=== PATIENT | female | born 1970 | race Caucasian/White ===

== ENCOUNTER 2018-01-03 09:42 | Emergency (ER) | payer MEDICAID ==
[~2018-01-03] VITALS: Ht 162.6 cm; Wt 78.5 kg
[2018-01-03 09:47] VITALS: Ht 162.6 cm; Wt 78.5 kg
[2018-01-03 11:25] LABS: CALCIUM 9.2 mg/dL (8.5-10.1); CARBON DIOXIDE 27.9 mmol/L (21-32); CHLORIDE SERUM 105 mmol/L (98-107); CREATININE SERUM 0.7 mg/dL (0.6-1.0); GFR1 > 60 mL/min; GLUCOSE SERUM 99 mg/dL (74-106); POTASSIUM SERUM 3.7 mmol/L (3.5-5.1); SODIUM SERUM 141 mmol/L (136-145)
[2018-01-03 11:26] LABS: BASOPHIL % 0.6 % (0-2); PLATELET COUNT 309 x10^3mcL (130-400)
[2018-01-03 11:30] LABS: ALBUMIN 3.5 g/dL (3.4-5.0); ALKALINE PHOSPHATASE 122 U/L (46-116); ALT/SGPT 23 U/L (14-59); AST/SGOT 17 U/L (15-37); BILIRUBIN TOTAL 0.3 mg/dL (0.20-1.00); TOTAL PROTEIN, SERUM 7.3 g/dL (6.4-8.2)
[2018-01-03 11:34] LABS: RED CELL DISTRIBUTION WIDTH 17.2 % (11.5-14.5)
[2018-01-03 13:05] VITALS: BP 142/74
== END 2018-01-03 13:05 | disposition home or self-care (01) ==
LOC: ED 09:42
PROVIDERS: Emergency Medicine
DX: N93.8 Other specified abnormal uterine and vaginal bleeding (principal); Z97.5 Presence of (intrauterine) contraceptive device
CPT/HCPCS: J1885; J2405

== ENCOUNTER 2019-10-15 20:03 | Emergency (ER) | payer OTHER ==
[~2019-10-15] VITALS: Ht 162.6 cm; Wt 84.8 kg
[2019-10-15 20:30] VITALS: Ht 162.6 cm; Wt 84.8 kg
[2019-10-15 22:17] VITALS: BP 140/74
== END 2019-10-15 22:17 | disposition home or self-care (01) ==
LOC: ED 20:03
DX: S61.213A Laceration without foreign body of left middle finger without damage to nail, initial encounter (principal); W26.0XXA Contact with knife, initial encounter; Y93.89 Activity, other specified; Y92.89 Other specified places as the place of occurrence of the external cause; Y99.8 Other external cause status
CPT/HCPCS: 90715; J2001